=== PATIENT | male | born 1980 | race Caucasian/White ===

== ENCOUNTER 2019-03-23 | Outpatient (CLI) | payer OTHER | END 2019-03-23 15:47 | disposition home or self-care (01) | DX: R06.2 Wheezing (principal); R05 Cough | CPT/HCPCS: 71046 ==

== ENCOUNTER 2020-08-07 09:30 | Emergency (ER) | payer OTHER ==
[2020-08-07 10:09] LABS: BASOPHILS % (AUTO) 0.3 %; EOSINOPHILS % (AUTO) 0.3 %; HGB - HEMOGLOBIN 15.7 g/dL (14.0-18.0); LYMPHOCYTES # (AUTO) 0.8 10^3/uL (1.5-3.5); LYMPHOCYTES % (AUTO) 10.3 %; MEAN CORPUSCULAR HEMOGLOBIN 29.3 pg (27.0-31.0); MEAN CORPUSCULAR HGB CONC 34.6 g/dL (32.0-36.0); MEAN CORPUSCULAR VOLUME 84.9 fL (80.0-94.0); MEAN PLATELET VOLUME 11.2 fL (7.4-11.4); MONOCYTES # (AUTO) 0.3 10^3/uL (0.0-1.0); MONOCYTES % (AUTO) 4.3 %; NEUTROPHILS # (AUTO) 6.3 10^3/uL (1.5-6.6); NEUTROPHILS % (AUTO) 84.7 %; PLT - PLATELET COUNT 234 10^3/uL (130-450); RED BLOOD COUNT 5.35 10^6/uL (4.70-6.10); RED CELL DISTRIBUTION WIDTH 14.2 % (12.0-15.0); WHITE BLOOD COUNT 7.4 x10^3/uL (4.8-10.8)
[2020-08-07 10:18] LABS: BILIRUBIN,URINE NEGATIVE (NEGATIVE); GLUCOSE, URINE (UA) NEGATIVE (NEGATIVE); KETONES,URINE (UA) NEGATIVE (NEGATIVE); LEUKOCYTE ESTERASE, URINE NEGATIVE (NEGATIVE); NITRITE,URINE NEGATIVE (NEGATIVE); OCCULT BLOOD,URINE LARGE (NEGATIVE); PH,URINE 6.5 PH (5.0-7.5); PROTEIN,URINE NEGATIVE (NEGATIVE); UROBILINOGEN,URINE 0.2 (NORMAL) E.U./dL (NORMAL)
[2020-08-07 10:21] LABS: ALBUMIN 4.6 g/dL (3.2-5.5); ALBUMIN/GLOBULIN RATIO 1.4 (1.0-2.2); BILIRUBIN,TOTAL 0.5 mg/dL (0.2-1.0); CALCIUM 10.2 mg/dL (8.5-10.3); CREATININE 0.9 mg/dL (0.6-1.2); TOTAL PROTEIN 7.9 g/dL (6.7-8.2)
[2020-08-07 10:22] LABS: CLARITY,URINE HAZY (CLEAR)
[2020-08-07 10:25] LABS: BACTERIA,URINE Few /HPF (None Seen); RBC,URINE TNTC /HPF (0-5); SQUAMOUS EPITHELIAL CELL,UR NONE SEEN (<= Few)
[2020-08-07] MEDS ORDERED: KETOROLAC 15 MG/ML VIAL IVP STA ×2 (11:00→12:12)
[2020-08-07] MEDS ORDERED: LACTATED RINGERS 500 ML IV ONE (11:00)
[2020-08-07 11:26] VITALS: BP 167/83
[2020-08-07] MEDS ORDERED: IOVERSOL 320 100 ML VIAL IVP ONE ×2 (11:40→17:04)
[2020-08-07] MEDS ORDERED: LACTATED RINGERS 1,000 ML IV STA (12:12)
--- NOTE | 2020-08-07 12:29 | CT Report ---
PROCEDURE: Abdomen/Pelvis W INDICATIONS: ABD PAIN, HEMATURIA CONTRAST: IV CONTRAST: Optiray 320 ml: 100 PO CONTRAST: *NO PO CONTRAST TECHNIQUE: After the administration of intravenous contrast, 5 mm thick sections acquired from the diaphragms to the symphysis. 5 mm thick coronal and sagittal reformats were acquired. For radiation dose reducti on, the following was used: automated exposure control, adjustment of mA and/or kV according to gisselle ent size. COMPARISON: None. FINDINGS: Image quality: Excellent. Urinary tract: There is an approximately 5 mm calculus at the right UVJ (series 3 image 75) producing mild right hydroureter without significant hydronephrosis although there is some right perinephric f at stranding. No urinary tract calculus elsewhere. No hydronephrosis or hydroureter on the left. Urin belinda bladder otherwise unremarkable. Lung bases: Lung bases are clear. Heart size is normal. Solid organs: Mild hepatic steatosis. The liver and spleen are otherwise normal in size and enhanceme nt. Gallbladder is normal. Biliary system is non dilated. Pancreas enhances normally. No adrenal nodules. Kidneys demonstrate normal size and enhancement, without hydronephrosis. Peritoneum and bowel: Bowel loops demonstrate normal wall thickness and caliber. No free fluid or a ir. Nodes and vessels: No retroperitoneal or mesenteric adenopathy by size criteria. Aorta and inferior vena cava are normal in size. Miscellaneous: No ventral hernias. PELVIS: Genitourinary: Bladder wall thickness is normal. Miscellaneous: No inguinal hernias or adenopathy. Bones: No suspicious bony lesions. No vertebral body compression fractures. IMPRESSION: Proximally 5 mm right UVJ calculus producing mild right hydroureter. Reviewed by: Jeffrey Lopez MD on 08/07/2020 11:27 AM [facility] Approved by: Jeffrey Lopez MD on 08/07/2020 11:27 AM [facility] Station ID: [id number]
--- NOTE | 2020-08-07 13:11 | ED Physician Documentation ---
PD HPI ABD PAIN - Stated complaint Stated Complaint: MALE /ABDOMINAL PX - Chief complaint Chief Complaint: Abd Pain - Additional information Additional information: 40-year-old man with pmh ITP Presents with right lower quadrant pain starting at 4 AM suddenly radiating down to his right groin, constant, aching, associated with urinary frequency and urgency, severe, without exacerbating or relieving factors. Denies fever, prior history of stones.Also with mild nausea. Review of Systems Ten Systems: 10 systems reviewed and negative Constitutional: denies: Fever, Chills GI: reports: Abdominal Pain, Nausea : reports: Frequency PD PAST MEDICAL HISTORY - Past Medical History Cardiovascular: Hypertension - Past Surgical History Past Surgical History: No - Present Medications Home Medications: Ambulatory Orders Medication Instructions Recorded Confirmed atenoloL [Atenolol] 12 mg PO DAILY 04/27/16 04/27/16 Tamsulosin HCl [Flomax] 0.4 mg PO QDAC 14 Days #14 08/07/20 cap.er.24h - Allergies Allergies/Adverse Reactions: Allergies Allergy/AdvReac Type Severity Reaction Status Date / Time amoxicillin Allergy Anaphylaxis Verified 08/07/20 09:37 Penicillins Allergy Anaphylaxis Verified 08/07/20 09:37 Sulfa (Sulfonamide Allergy Anaphylaxis Verified 08/07/20 09:37 Antibiotics) sulfamethoxazole Allergy Anaphylaxis Verified 08/07/20 09:37 [From Bactrim] trimethoprim [From Bactrim] Allergy Anaphylaxis Verified 08/07/20 09:37 - Social History Does the pt smoke?: No Smoking Status: Never smoker Does the pt drink ETOH?: No Does the pt have substance abuse?: No - Immunizations Immunizations are current?: Yes PD ED PE NORMAL - Vitals Vital signs reviewed: Yes - General General: Alert and oriented X 3 - HEENT HEENT: Atraumatic, PERRL, EOMI - Neck Neck: Supple, no meningeal sign - Cardiac Cardiac: RRR - Respiratory Respiratory: No respiratory distress - Abdomen Abdomen: Normal bowel sounds, Non tender, Non distended - Male Male : Deferred - Rectal Rectal: Deferred - Back Back: No CVA TTP - Derm Derm: Normal color - Extremities Extremities: No deformity - Neuro Neuro: Alert and oriented X 3 - Psych Psych: Normal mood, Normal affect Results - Vitals Vitals: Vital Signs - 24 hr 08/07/20 08/07/20 09:38 11:24 Temperature 37 C Heart Rate 58 L 62 Respiratory 18 18 Rate Blood Pressure 170/108 H 167/83 H O2 Saturation 98 100 Oxygen O2 Source Room air - Labs Labs: Laboratory Tests 08/07/20 08/07/20 08/07/20 09:50 09:50 10:10 WBC 7.4 RBC 5.35 Hgb 15.7 Hct 45.4 MCV 84.9 MCH 29.3 MCHC 34.6 RDW 14.2 Plt Count 234 MPV 11.2 Neut # (Auto) 6.3 Lymph # (Auto) 0.8 L [place] # (Auto) 0.3 Eos # (Auto) 0.0 Baso # (Auto) 0.0 Absolute Nucleated RBC 0.00 Nucleated RBC % 0.0 Sodium 136 Potassium 4.1 Chloride 104 Carbon Dioxide 22 Anion Gap 10.0 BUN 16 Creatinine 0.9 Estimated GFR (MDRD) 93 Glucose 145 H Calcium 10.2 Total Bilirubin 0.5 AST 83 H ALT 137 H Alkaline Phosphatase 82 Total Protein 7.9 Albumin 4.6 Globulin 3.3 Albumin/Globulin Ratio 1.4 Lipase 30 Urine Color YELLOW Urine Clarity HAZY Urine pH 6.5 Ur Specific [place] 1.020 Urine Protein NEGATIVE Urine Glucose (UA) NEGATIVE Urine Ketones NEGATIVE Urine Occult Blood LARGE H Urine Nitrite NEGATIVE Urine Bilirubin NEGATIVE Urine Urobilinogen 0.2 (NORMAL) Ur Leukocyte Esterase NEGATIVE Urine RBC TNTC H Urine WBC 0-3 Ur Squamous Epith Cells NONE SEEN Urine Bacteria Few Ur Microscopic Review INDICATED Urine Culture Comments NOT INDICATED PD MEDICAL DECISION MAKING - ED course Complexity details: reviewed results, re-evaluated patient, d/w patient ED course: 40-year-old man came in for right lower quadrant abdominal pain, found to have kidney stone on CT. Low suspicion for appendicitis. Strict return precautions given. Patient will follow up with urologist. Departure - Departure Disposition: 01 Home, Self Care Clinical Impression: Kidney stone, Hematuria, Abdominal pain Condition: Good Instructions: Kidney Stones Prescriptions: Tamsulosin HCl [Flomax] 0.4 mg PO QDAC 14 Days #14 cap.er.24h Comments: You have a 5 mm stone in your distal UPJ. This means that it is in your urinary tract near the end of the ureter, about to get into the bladder. You should be able to pass it on your own, but follow-up with urology in 1 week if you are still having symptoms. Take ibuprofen 600 mg every 6 hours for pain. Return to the ED if you have fevers or if you have any new or worsening symptoms.
== END 2020-08-07 13:24 | disposition home or self-care (01) ==
LOC: ED 09:30
DX: N20.0 Calculus of kidney (principal); R31.9 Hematuria, unspecified; I10 Essential (primary) hypertension
CPT/HCPCS: 36415; 74177; 80053; 81001; 83690; 85025; 96361; 96374; 96376; 99284; J7120; Q9967; 81003; 87086